=== PATIENT | male | born 1990 | race Caucasian/White ===

== ENCOUNTER 2018-01-09 23:27 | Emergency (ER) | payer OTHER ==
[~2018-01-09] VITALS: Ht 188 cm; Wt 186.0 kg
[~2018-01-09 23:27] MED LIST: BUTALB-APAP-CA1 EACH PO; CYCLOBENZAPRINE5 MG PO; FLEXERIL PO; FLOXIN OTI0.3 %/5 M1 OT; IBUPROFEN 800800 MG PO; NAPROSYN500 MG PO; NOHOMEMEDICATIONS; NORCO 5-325 TA1 EACH PO; TRAMADOL 50 MG50 MG PO; ZOFRAN4 MG PO; ZPAK PO
[2018-01-09 23:54] LABS: URINE BILIRUBIN NEGATIVE (Negative); URINE BLOOD NEGATIVE (Negative); URINE CLARITY CLEAR; URINE COLOR YELLOW; URINE GLUCOSE-RANDOM NEGATIVE (Negative); URINE KETONES NEGATIVE (Negative); URINE LEUKOCYTES-REFLEX NEGATIVE (Negative); URINE NITRITE-REFLEX NEGATIVE (Negative); URINE PROTEIN NEGATIVE (Negative); URINE SPECIFIC GRAVITY 1.025 (1.005-1.030)
[2018-01-10 00:07] LABS: ABSOLUTE BASOPHILS 0.1 thou/uL (0.0-0.2); ABSOLUTE EOSINOPHILS 0.4 thou/uL (0.0-0.7); ABSOLUTE LYMPHOCYTES 3.3 thou/uL (0.8-5.3); ABSOLUTE MONOCYTES 0.7 thou/uL (0.0-1.2); ABSOLUTE NEUTROPHILS 7.2 thou/uL (1.6-8.1); BASOPHILS 0.6 %; EOSINOPHILS 3.7 %; HEMATOCRIT 41.6 % (42.0-52.0); HEMOGLOBIN 13.9 gm/dL (14.0-18.0); LYMPHOCYTES 28.3 %; MCH 28.6 pg (26.0-34.0); MCHC 33.5 g/dL (28.0-37.0); MCV 85.5 fL (80.0-100.0); MONOCYTES 5.9 %; MPV 7.6 fl. (7.2-11.1); NUCLEATED RBCS 0 /100WBC; PLATELET COUNT* 323 thou/uL (150-400); POLYS 61.5 %; RBC 4.86 mil/uL (4.50-6.00); RDW-CV 14.1 % (10.5-14.5); WBC 11.6 thou/uL (4.0-11.0)
[2018-01-10 00:33] LABS: CALCIUM 8.7 mg/dL (8.5-10.1); CREATININE 0.9 mg/dL (0.6-1.3); POTASSIUM 3.8 mmol/L (3.5-5.1)
[2018-01-10 00:37] LABS: ALBUMIN 3.3 g/dL (3.4-5.0); TOTAL BILIRUBIN 0.6 mg/dL (<0.1-1.0); TOTAL PROTEIN 7.3 g/dL (6.4-8.2)
[2018-01-10] MEDS ORDERED: CIPROFLOXACIN500 M1 PO (01:29)
[2018-01-10] MEDS ORDERED: NORCO 5-325 TA1 EACH PO (01:29)
[2018-01-10] MEDS ORDERED: FLAGYL500 MG PO (01:29)
[2018-01-10 01:34] VITALS: BP 126/72
== END 2018-01-10 01:35 | disposition home or self-care (01) ==
LOC: M.ERS 23:27
PROVIDERS: Family Medicine
DX: K57.92 Diverticulitis of intestine, part unspecified, without perforation or abscess without bleeding (principal); F17.210 Nicotine dependence, cigarettes, uncomplicated; Z88.8 Allergy status to other drugs, medicaments and biological substances

== ENCOUNTER 2018-03-06 00:01 | Emergency (ER) | payer OTHER ==
[~2018-03-06] VITALS: Ht 190.5 cm; Wt 195.1 kg
[~2018-03-06 00:01] MED LIST changes: +CIPROFLOXACIN500 M1 PO; +FLAGYL500 MG PO
[2018-03-06] MEDS ORDERED: ULTRAM 50MG TAB50 MG PO (01:03)
[2018-03-06] MEDS ORDERED: IBUPROFEN 800800 MG PO (01:03)
[2018-03-06 01:25] VITALS: BP 188/81
== END 2018-03-06 01:25 | disposition home or self-care (01) ==
LOC: M.ERS 00:01
DX: S90.01XA Contusion of right ankle, initial encounter (principal); F17.210 Nicotine dependence, cigarettes, uncomplicated; Z88.8 Allergy status to other drugs, medicaments and biological substances; W19.XXXA Unspecified fall, initial encounter; Y93.89 Activity, other specified; Y92.009 Unspecified place in unspecified non-institutional (private) residence as the place of occurrence of the external cause; Y99.8 Other external cause status

== ENCOUNTER 2018-07-26 23:13 | Emergency (ER) | payer OTHER ==
[~2018-07-26] VITALS: Ht 188 cm; Wt 149.7 kg
[~2018-07-26 23:13] MED LIST changes: +ULTRAM 50MG TAB50 MG PO
[2018-07-26] MEDS ORDERED: AMOXICILLI400 MG/5 M PO (23:54)
[2018-07-27 00:02] VITALS: BP 148/86
== END 2018-07-27 00:02 | disposition home or self-care (01) ==
LOC: M.ERS 23:13
DX: H66.93 Otitis media, unspecified, bilateral (principal); E66.01 Morbid (severe) obesity due to excess calories; F17.210 Nicotine dependence, cigarettes, uncomplicated; Z68.41 Body mass index [BMI] 40.0-44.9, adult; Z88.1 Allergy status to other antibiotic agents

== ENCOUNTER 2019-01-06 23:11 | Emergency (ER) | payer OTHER ==
[~2019-01-06] VITALS: Ht 188 cm; Wt 235.9 kg
[~2019-01-06 23:11] MED LIST changes: +AMOXICILLI400 MG/5 M PO
[2019-01-06] MEDS ORDERED: AMOXICILLIN 50500 MG PO (23:45)
[2019-01-06] MEDS ORDERED: CIPROFLOXIN HC2.5 M1 OTIC (23:45)
[2019-01-06 23:54] VITALS: BP 143/88
== END 2019-01-06 23:56 | disposition home or self-care (01) ==
LOC: M.ERS 23:11
DX: H66.92 Otitis media, unspecified, left ear (principal); H60.92 Unspecified otitis externa, left ear; E66.01 Morbid (severe) obesity due to excess calories; Z68.44 Body mass index [BMI] 60.0-69.9, adult; F17.210 Nicotine dependence, cigarettes, uncomplicated; Z88.8 Allergy status to other drugs, medicaments and biological substances

== ENCOUNTER 2019-03-30 21:07 | Emergency (ER) | payer OTHER ==
[~2019-03-30] VITALS: Ht 188 cm; Wt 190.5 kg
[~2019-03-30 21:07] MED LIST changes: +AMOXICILLIN 50500 MG PO; +CIPROFLOXIN HC2.5 M1 OTIC; +PREDNISONE50 MG PO; +PROAIR HFA8.5 GM INH; +PROMETHAZINE-C473 ML PO
[2019-03-30 21:43] LABS: URINE BILIRUBIN NEGATIVE (Negative); URINE BLOOD NEGATIVE (Negative); URINE CLARITY CLEAR; URINE COLOR YELLOW; URINE GLUCOSE-RANDOM NEGATIVE (Negative); URINE KETONES NEGATIVE (Negative); URINE LEUKOCYTES-REFLEX NEGATIVE (Negative); URINE NITRITE-REFLEX NEGATIVE (Negative); URINE PROTEIN NEGATIVE (Negative); URINE SPECIFIC GRAVITY 1.025 (1.005-1.030)
[2019-03-30 21:55] LABS: ABSOLUTE BASOPHILS 0.1 thou/uL (0.0-0.2); ABSOLUTE EOSINOPHILS 0.3 thou/uL (0.0-0.7); ABSOLUTE LYMPHOCYTES 2.6 thou/uL (0.8-5.3); ABSOLUTE MONOCYTES 0.7 thou/uL (0.0-1.2); ABSOLUTE NEUTROPHILS 7.8 thou/uL (1.6-8.1); BASOPHILS 1.1 %; EOSINOPHILS 2.5 %; HEMATOCRIT 39.8 % (42.0-52.0); HEMOGLOBIN 13.2 gm/dL (14.0-18.0); LYMPHOCYTES 22.6 %; MCH 27.6 pg (26.0-34.0); MCHC 33.1 g/dL (28.0-37.0); MCV 83.5 fL (80.0-100.0); MONOCYTES 5.7 %; MPV 7.7 fl. (7.2-11.1); NUCLEATED RBCS 0 /100WBC; PLATELET COUNT* 384 thou/uL (150-400); POLYS 68.1 %; RBC 4.77 mil/uL (4.50-6.00); RDW-CV 14.5 % (10.5-14.5); WBC 11.4 thou/uL (4.0-11.0)
[2019-03-30 22:07] LABS: CALCIUM 8.4 mg/dL (8.5-10.1); CREATININE 1.1 mg/dL (0.6-1.3)
[2019-03-30 22:11] LABS: ALBUMIN 3.4 g/dL (3.4-5.0); TOTAL BILIRUBIN 0.6 mg/dL (<0.1-1.0); TOTAL PROTEIN 7.6 g/dL (6.4-8.2)
[2019-03-30] MEDS ORDERED: FLEXERIL PO (22:15)
[2019-03-30] MEDS ORDERED: IBUPROFEN 800800 M1 PO (22:15)
[2019-03-30] MEDS ORDERED: LIDODERM1 EACH TRANSDERM (22:15)
[2019-03-30] MEDS ORDERED: NORCO 5-325 TA1 EAC1 PO (22:15)
[2019-03-30 22:30] VITALS: BP 120/70
== END 2019-03-30 22:30 | disposition home or self-care (01) ==
LOC: M.ERS 21:07
PROVIDERS: Emergency Medicine Emergency Medical Services
DX: M54.5 Low back pain (principal); E66.01 Morbid (severe) obesity due to excess calories; F17.210 Nicotine dependence, cigarettes, uncomplicated; Z68.43 Body mass index [BMI] 50.0-59.9, adult; Z88.1 Allergy status to other antibiotic agents

== ENCOUNTER 2019-04-02 04:54 | Emergency (ER) | payer OTHER ==
[~2019-04-02] VITALS: Ht 188 cm; Wt 215.5 kg
[~2019-04-02 04:54] MED LIST changes: +IBUPROFEN 800800 M1 PO; +LIDODERM1 EACH TRANSDERM; +NORCO 5-325 TA1 EAC1 PO
[2019-04-02 05:40] LABS: ABSOLUTE BASOPHILS 0.1 thou/uL (0.0-0.2); ABSOLUTE EOSINOPHILS 0.3 thou/uL (0.0-0.7); ABSOLUTE LYMPHOCYTES 2.6 thou/uL (0.8-5.3); ABSOLUTE MONOCYTES 0.6 thou/uL (0.0-1.2); ABSOLUTE NEUTROPHILS 6.4 thou/uL (1.6-8.1); EOSINOPHILS 3.1 %; HEMATOCRIT 36.1 % (42.0-52.0); HEMOGLOBIN 11.9 gm/dL (14.0-18.0); LYMPHOCYTES 26.3 %; MCH 27.6 pg (26.0-34.0); MCHC 33.1 g/dL (28.0-37.0); MCV 83.5 fL (80.0-100.0); MONOCYTES 5.8 %; MPV 7.6 fl. (7.2-11.1); NUCLEATED RBCS 0 /100WBC; PLATELET COUNT* 357 thou/uL (150-400); POLYS 63.8 %; RBC 4.33 mil/uL (4.50-6.00); RDW-CV 14.6 % (10.5-14.5)
[2019-04-02 05:48] LABS: CALCIUM 8.4 mg/dL (8.5-10.1); CREATININE 0.9 mg/dL (0.6-1.3); POTASSIUM 4.2 mmol/L (3.5-5.1)
[2019-04-02] MEDS ORDERED: PERCOCET 7.5-31 EACH PO (06:59)
[2019-04-02 07:10] VITALS: BP 125/69
== END 2019-04-02 07:10 | disposition home or self-care (01) ==
LOC: M.ERS 04:54
PROVIDERS: Emergency Medicine
DX: S22.32XA Fracture of one rib, left side, initial encounter for closed fracture (principal); F17.210 Nicotine dependence, cigarettes, uncomplicated; E66.01 Morbid (severe) obesity due to excess calories; Z68.44 Body mass index [BMI] 60.0-69.9, adult; Z88.1 Allergy status to other antibiotic agents; W18.39XA Other fall on same level, initial encounter; Y92.89 Other specified places as the place of occurrence of the external cause; Y93.89 Activity, other specified; Y99.8 Other external cause status

== ENCOUNTER 2021-02-05 01:01 | Emergency (ER) | payer OTHER ==
[~2021-02-05] VITALS: Ht 188 cm; Wt 204.1 kg
[~2021-02-05 01:01] MED LIST changes: +PERCOCET 7.5-31 EACH PO
[2021-02-05 01:45] LABS: ABSOLUTE BASOPHILS 0.1 thou/uL (0.0-0.2); ABSOLUTE LYMPHOCYTES 2.1 thou/uL (0.8-5.3); ABSOLUTE MONOCYTES 0.6 thou/uL (0.0-1.2); ABSOLUTE NEUTROPHILS 9.4 thou/uL (1.6-8.1); BASOPHILS 0.5 %; EOSINOPHILS 0.3 %; HEMATOCRIT 39.9 % (42.0-52.0); HEMOGLOBIN 13.5 gm/dL (14.0-18.0); MCH 28.4 pg (26.0-34.0); MCHC 33.8 g/dL (28.0-37.0); MCV 83.9 fL (80.0-100.0); MONOCYTES 5.3 %; MPV 7.7 fl. (7.2-11.1); NUCLEATED RBCS 0 /100WBC; PLATELET COUNT* 334 thou/uL (150-400); POLYS 76.9 %; RBC 4.75 mil/uL (4.50-6.00); RDW-CV 14.9 % (10.5-14.5); WBC 12.2 thou/uL (4.0-11.0)
[2021-02-05 01:54] LABS: CREATININE 1.1 mg/dL (0.6-1.3); POTASSIUM 3.9 mmol/L (3.5-5.1)
[2021-02-05 01:59] LABS: ALBUMIN 3.4 g/dL (3.4-5.0); TOTAL BILIRUBIN 0.5 mg/dL (<0.1-1.0); TOTAL PROTEIN 7.5 g/dL (6.4-8.2)
[2021-02-05 03:45] LABS: AMP/METHAMP Negative (Negative); BARBITURATES Negative (Negative); BENZODIAZEPINES Negative (Negative); COCAINE Negative (Negative); METHADONE Negative (Negative); OPIATES Negative (Negative); PCP Negative (Negative); THC Negative (Negative)
[2021-02-05 04:30] VITALS: BP 148/96
--- NOTE | 2021-02-06 11:46 | EKG ---
[place] [address] ELECTROCARDIOGRAM REPORT Name: KEYSHAWN TORRE Room: [facility]#: [id number] Admission: 02/05/21 Attend Phys: Discharge: 02/05/21 Date of : 89 Date of Service: 02/05/21103 Report #: [id number] THIS REPORT FOR: //name// [facility] ED Test Date: 2021-02-05 Test Time: 01:04:13 Pat Name: KEYSHAWN TORRE Department: Room: Gender: Institutional [employer]st: : 1990 Requested By: Rachell Mcleod Order Number: [id number] MD: Tha Silva Measurements Intervals [place] Rate: 111 P: 19 MI: 168 QRS: -29 QRSD: 118 T: 42 QT: 342 QTc: 465 Interpretive Statements Sinus tachycardia Incomplete right bundle branch block No previous ECG available for comparison Electronically Signed On 02-06-2021 11:46:14 CDT by Tha Silva [email or web address] <ELECTRONICALLY SIGNED> By: Tha Silva MD, [facility] 02/06/21 1146 3 Tha Silva MD, FAC /EPI
== END 2021-02-05 04:52 | disposition home or self-care (01) ==
LOC: M.ERS 01:01
PROVIDERS: Personal Emergency Response Attendant
DX: I16.0 Hypertensive urgency (principal); E11.65 Type 2 diabetes mellitus with hyperglycemia; Z91.14 Patient's other noncompliance with medication regimen; E66.01 Morbid (severe) obesity due to excess calories; Z88.5 Allergy status to narcotic agent; Z88.1 Allergy status to other antibiotic agents; F17.210 Nicotine dependence, cigarettes, uncomplicated; Z68.43 Body mass index [BMI] 50.0-59.9, adult